=== PATIENT | female | born 1975 | race Caucasian/White ===

== ENCOUNTER → 2022-10-19 | Outpatient (CLI) | payer BC ==
--- NOTE | 2022-10-19 14:59 | Diagnostic Imaging Report ---
PELVIS/LETICIA HIPS 2 VIEWS INDICATION: Pain in both hips COMPARISON: None available. TECHNIQUE: AP abdomen with 2 views of each hip for a total 5 views FINDINGS: No avascular necrosis of femoral heads. No acetabular retroversion on either side. No fracture or concerning focal osseous lesion. SI joints are normal in alignment. Symphysis pubis is normal. No abnormal soft tissue mineralizations. Partially imaged posterior instrumented fusion at L3-L4. IMPRESSION: No osseous abnormality of the hips to account for pain. Dictated by: Dictated on workstation # [id number]
--- NOTE | 2022-10-19 16:39 | Diagnostic Imaging Report ---
INDICATION: Right shoulder pain. FINDINGS: 3 views. The glenohumeral joint and AC joint are in good alignment. There is mild narrowing of the glenohumeral joint. Minimal hypertrophic change along the inferior aspect of the humeral head. Articulating surfaces are smooth. The AC joint appears in good alignment. There are no fractures. No soft tissue calcification. 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 Dictated by: Dictated on workstation # [id number]
== END ==
LOC: ORTHO 09:17
PROVIDERS: ATTEND Orthopaedic Surgery
DX: M19.011 Primary osteoarthritis, right shoulder (principal)
CPT/HCPCS: 73030; 73521; 99203

== ENCOUNTER → 2022-10-26 | Outpatient (CLI) | payer BC | LOC: ORTHO 08:57 | PROVIDERS: ATTEND Orthopaedic Surgery | DX: M75.101 Unspecified rotator cuff tear or rupture of right shoulder, not specified as traumatic (principal) | CPT/HCPCS: 99213 ==

== ENCOUNTER → 2022-11-02 | Outpatient (CLI) | payer BC ==
--- NOTE | 2022-11-02 09:28 | Diagnostic Imaging Report ---
PROCEDURE: MRI right joint upper extremity without contrast. TECHNIQUE: Multiplanar, multisequence non contrast-enhanced MRI of the right upper extremity was accomplished. INDICATION: Chronic right shoulder pain. Recent fall. COMPARISON: 10/19/2022 FINDINGS: No acute fracture or dislocation is seen in the right shoulder. Alignment appears normal. There is cortical irregularity and subcortical cystlike change at the greater tuberosity. There is a minimal joint effusion. There appears to be a screw tract at the anterior humerus. The supraspinatus tendon and infraspinatus tendon appear intact. The subscapularis tendon is intact. The teres minor tendon appears intact. No focal muscular atrophy is seen. The long head of the biceps tendon appears to be subject to prior tenodesis. There may be some fraying of the tendon just distal to the tenodesis site. The right glenoid labrum is suboptimally evaluated in the absence of intra-articular contrast. There are screw tracks from prior surgery. Tearing of the labrum at the posterior superior aspect is suspected. No para labral cyst is seen. The acromion appears thin, may be from prior acromioplasty. There is mild degenerative change at the acromioclavicular joint. The coracoclavicular and coracoacromial ligaments appear to be intact. IMPRESSION: 1. Postsurgical changes in the right shoulder. No high-grade partial-thickness or full-thickness rotator cuff tears are seen. 2. Suspected tear at the posterior glenoid labrum. No para labral cyst. 3. Fraying of the long head of the biceps tendon just distal to the tenodesis site. 4. Minimal right shoulder joint effusion. Dictated by: Dictated on workstation # [id number]
== END ==
LOC: RAD 08:00
PROVIDERS: ATTEND Orthopaedic Surgery
DX: M75.101 Unspecified rotator cuff tear or rupture of right shoulder, not specified as traumatic (principal); Z98.890 Other specified postprocedural states
CPT/HCPCS: 73221

== ENCOUNTER → 2023-01-31 | Outpatient (CLI) | payer BC ==
--- NOTE | 2023-02-03 14:56 | Diagnostic Imaging Report ---
INDICATION: Routine screening. Comparison is made with prior mammogram from 09/03/2019. 2-D and 3-D bilateral screening mammography was performed with CAD. CAD is utilized. The current study was also evaluated with a Computer Aided Detection (CAD) system. Both breasts are heterogeneously dense, limiting the sensitivity of mammography. The parenchymal pattern is stable. No mass or malignant-appearing microcalcifications are seen. Axillae are unremarkable. IMPRESSION: BI-RADS Category 1 No mammographic features suspicious for malignancy are identified. ACR BI-RADS Category 1: Negative. Result letter will be mailed to the patient. Note: At least 10% of breast cancer is not imaged by mammography. Dictated by: Dictated on workstation # [id number]
== END ==
LOC: RAD 08:30
PROVIDERS: ATTEND Internal Medicine
DX: Z12.31 Encounter for screening mammogram for malignant neoplasm of breast (principal)
CPT/HCPCS: 77063; 77067